=== PATIENT | female | born 1940 | race Caucasian/White ===

== ENCOUNTER → 2017-07-20 | Outpatient (CLI) | payer OTHER ==
[~2017-07-20] MED LIST: ALBU90OI; ALBU90OI INH; ALBU90OI61 INH; ASPI81CH PO; ASPI81EC PO; ATOR10 PO; Advair Hfa 230-12 GM INH; BENA20 PO; Benazepril HCl10 MG PO; CALCA500CH PO; CARB100CH PO; CARB100ER PO; CARB200 PO; CEPH250A PO; CITA20 PO; CLON1; CLON1 PO; CLON2 PO; CLOP75 PO; CONEST.625; CONESTTC PV; Carafate1 GM/10 ML PO; DOCU100 PO; DULO30 PO; ERGO400 PO; FLUSAL2505 PO; GABA300; GABA300 PO; HYDCHL25; HYDR1TAB94 PO; HYOS.125 PO; IMIP50; Ipratr-Albuterol3 ML INH; Isosorbide Dini30 MG PO; LEVSOD25 PO; LEVSOD75 PO; METO25; NAPR500; NAPR500 PO; NIFE30ER PO; NITR.4SL PO; NITR.4SL SL; NITR2TO30 TOP; OMEP20ER PO; PANT40 PO; PRAM.125 PO; RANI150; SENN187 PO; TRAM50; TRAM50 PO; TUMS X-STR300 MG PO; VICODIN 5-3001 EACH; [UNRECOGNIZED DRUG - OTHER]
[2017-07-20 11:06] LABS: BASOPHILS ABSOLUTE AUTO 0.05 K/mm3 (0.00-0.23); BASOPHILS PERCENT AUTO 1 % (0-2); EOSINOPHILS ABSOLUTE AUTO 0.09 K/mm3 (0.00-0.68); EOSINOPHILS PERCENT AUTO 1 % (0-6); Hematocrit 39.7 % (33.0-51.0); Hemoglobin 12.8 g/dL (11.5-16.0); IMMATURE GRAN ABSOLUTE AUTO 0.02 K/mm3 (0.00-0.10); IMMATURE GRAN PERCENT AUTO 0 % (0-1); LYMPHOCYTES ABSOLUTE AUTO 1.98 K/mm3 (0.84-5.20); LYMPHOCYTES PERCENT AUTO 27 % (21-46); MONOCYTES ABSOLUTE AUTO 0.65 K/mm3 (0.16-1.47); MONOCYTES PERCENT AUTO 9 % (4-13); Mean Corpuscular HGB 27.9 pg (26.0-34.0); Mean Corpuscular HGB Conc 32.2 g/dL (31.5-36.5); Mean Corpuscular Volume 87 fL (80-100); Mean Platelet Volume 9.8 fL (9.1-12.4); NEUTROPHILS ABSOLUTE AUTO 4.56 K/mm3 (1.96-9.15); NEUTROPHILS PERCENT AUTO 62 % (41-73); Platelet Count 306 K/mm3 (150-400); RDW Coefficient Variation 14.4 % (11.7-14.2); RDW Standard Deviation 45.4 fL (35.1-46.3); Red Blood Cell Count 4.58 M/mm3 (3.80-5.20); White Blood Cell Count 7.35 K/mm3 (4.00-11.30)
[2017-07-20 11:13] LABS: Albumin, Blood 3.8 g/dL (3.4-5.0); Albumin/Globulin Ratio 1.2 (0.8-1.8); Bilirubin, Total 0.4 mg/dL (0.1-1.0); Bun/Creatinine Ratio 10.1 (12.0-20.0); Calcium, Blood 8.9 mg/dL (8.5-10.1); Creatinine, Blood 1.29 mg/dL (0.40-1.00); Globulin, Blood 3.3 g/dL (2.2-4.0); Potassium, Blood 4.4 mmol/L (3.5-5.5); Total Protein, Blood 7.1 g/dL (6.4-8.2)
== END ==
LOC: LAB 10:58
PROVIDERS: Physician Assistant Medical
DX: R42 Dizziness and giddiness (principal)
CPT/HCPCS: 80053; 85025; 87086

== ENCOUNTER 2018-11-15 13:48 | Observation (INO) | payer OTHER ==
[~2018-11-15] VITALS: Ht 160 cm; Wt 64.8 kg
[~2018-11-15 13:48] MED LIST changes: -ALBU90OI61 INH; -ASPI81CH PO; -ATOR10 PO; -Advair Hfa 230-12 GM INH; -Benazepril HCl10 MG PO; -CEPH250A PO; -CLON1 PO; -GABA300 PO; -Ipratr-Albuterol3 ML INH; -LEVSOD75 PO; -METO25; -NIFE30ER PO; -PANT40 PO; -PRAM.125 PO
[2018-11-15 14:28] LABS: BASOPHILS ABSOLUTE AUTO 0.05 K/mm3 (0.00-0.23); BASOPHILS PERCENT AUTO 1 % (0-2); EOSINOPHILS PERCENT AUTO 5 % (0-6); Hematocrit 43.8 % (33.0-51.0); Hemoglobin 13.6 g/dL (11.5-16.0); IMMATURE GRAN ABSOLUTE AUTO 0.01 K/mm3 (0.00-0.10); IMMATURE GRAN PERCENT AUTO 0 % (0-1); LYMPHOCYTES ABSOLUTE AUTO 2.12 K/mm3 (0.84-5.20); LYMPHOCYTES PERCENT AUTO 33 % (21-46); MONOCYTES ABSOLUTE AUTO 0.52 K/mm3 (0.16-1.47); MONOCYTES PERCENT AUTO 8 % (4-13); Mean Corpuscular HGB 28.3 pg (26.0-34.0); Mean Corpuscular HGB Conc 31.1 g/dL (31.5-36.5); Mean Corpuscular Volume 91 fL (80-100); NEUTROPHILS ABSOLUTE AUTO 3.52 K/mm3 (1.96-9.15); NEUTROPHILS PERCENT AUTO 54 % (41-73); Platelet Count 305 K/mm3 (150-400); RDW Coefficient Variation 13.8 % (11.7-14.2); White Blood Cell Count 6.52 K/mm3 (4.00-11.30)
[2018-11-15 14:46] LABS: Alanine Aminotransfer (ALT/SGP 41 U/L (12-78); Albumin, Blood 3.8 g/dL (3.4-5.0); Alk Phos 95 U/L (50-136); Anion Gap 7 mmol/L (6-16); Aspartate Aminotrans (AST/SGOT 39 U/L (12-37); Bilirubin, Total 0.4 mg/dL (0.1-1.0); Blood Urea Nitrogen 11 mg/dL (8-24); Bun/Creatinine Ratio 12.9 (12.0-20.0); CO2, Blood 25 mmol/L (21-32); Calcium, Blood 8.7 mg/dL (8.5-10.1); Chloride, Blood 106 mmol/L (98-108); Creatinine, Blood 0.86 mg/dL (0.40-1.00); Globulin, Blood 3.8 g/dL (2.2-4.0); Glomerular Filtration Rate >60 (60-); Glucose, Blood 82 mg/dL (70-99); Potassium, Blood 4.5 mmol/L (3.5-5.5); Sodium, Blood 138 mmol/L (136-145); Total Protein, Blood 7.6 g/dL (6.4-8.2); Troponin I <0.015 ng/mL (0.000-0.040)
[2018-11-15] MEDS ORDERED: CLON1 PO (16:10)
[2018-11-15 16:13] LABS: Base Excess Venous 2.8 mmol/L; Bicarbonate Venous 26.5 mmol/L (24.0-30.0); PCO2 Venous 43.4 mmHg (38-42); PO2 Venous 89.8 mmHg (38-42); pH Blood Venous 7.41 (7.34-7.37)
[2018-11-15] MEDS ORDERED: Clobetasol Emol15 GM TOP (16:13)
[2018-11-15] MEDS ORDERED: METO25 PO (16:14)
[2018-11-15] MEDS ORDERED: Benazepril HCl10 MG PO (16:14)
[2018-11-15] MEDS ORDERED: GABA300 PO (16:14)
[2018-11-15] MEDS ORDERED: PANT40 PO (16:15)
[2018-11-15] MEDS ORDERED: CEPH250A PO (16:15)
[2018-11-15] MEDS ORDERED: PRAM.125 PO (16:15)
[2018-11-15] MEDS ORDERED: Aspirin EC81 MG PO (16:17)
[2018-11-15] MEDS ORDERED: NIFE30ER PO (16:18)
[2018-11-15 16:37] LABS: CHOL/HDL RATIO 2.6; Cholesterol 135 mg/dL (50-200); HDL Cholesterol 51 mg/dL (>39); LDL/HDL RATIO 1.1; Low Density Lipoprotein Chol 57 mg/dL (0-110); Triglycerides 134 mg/dL (30-160); Very Low Density Lipoprot Chol 26 mg/dL (6-32)
--- NOTE | 2018-11-15 19:33 | NUR ---
ARRIVAL PT ARRIVED TO UNIT APPROX. 1755 [facility]IA [facility] FROM ED. PT ABLE TO TRANSFER FROM [facility] TO BED ON OWN AND TOLERATED WELL. ORIENTED PT TO ROON, UNIT, AND POLICIES. ADMISSION PROCESS COMPLETED. ASSESSMENT COMPLETED. VITAL SIGNS STABLE. PT DENIES ANY CHEST PAIN AT THIS TIME. PT REPORTS THIS TO HAVE RESOLVED AFTER RECIEVING MEDICATIONS IN ED. PT RIGHT CALF SWOLLEN. RIGHT CALF LARGE THAN LEFT. PHYSICIAN AWARE OF THIS. PT GRANDSON AT BEDSIDE AT THIS TIME. BED IN LOW POSITION, CALL LIGHT IN REACH AND PT DENIES ANY NEEDS AT THIS TIME. WILL CONTINUE TO MONITOR UNTIL HANDOFF TO NIGHTSHIFT RN.
[2018-11-15 22:03] LABS: Source, Urine Clean Catch
[2018-11-15 22:05] LABS: Bilirubin, Urine Neg (Neg); Blood, Urine Neg (Neg); Glucose Qualitative, Urine Neg (Neg); Ketones, Urine Neg (Neg); Leukocyte Esterase, Urine Neg (Neg); Nitrite, Urine Neg (Neg); Protein, Urine Neg (Neg); Specific Gravity, Urine 1.005 (1.003-1.022); Urobilinogen, Urine NORM (Normal)
[2018-11-15 22:09] LABS: Appearance, Urine Clear (Clear); Color, Urine Pale Yellow (P-Yellow)
[2018-11-15 22:18] LABS: U Amphetamine Screen Not Detected; U Barbituate Screen Not Detected; U Benzodiazapine Screen Not Detected; U Buprenorphine Screen Not Detected; U Cannabinoids Screen Not Detected; U Cocaine Screen Not Detected; U Methadone Screen Not Detected; U Methamphetamine Screen Not Detected; U Opiates Screen DETECTED; U Oxycodone Screen Not Detected; U Phencyclidine Screen Not Detected; U Propoxyphene Screen Not Detected
[2018-11-15] MEDS ORDERED: ATOR10 PO (23:03)
[2018-11-15] MEDS ORDERED: LEVSOD75 PO (23:03)
[2018-11-15] MEDS ORDERED: Advair Hfa 230-12 GM INH (23:04)
[2018-11-15] MEDS ORDERED: ALBU90OI61 INH (23:05)
[2018-11-15] MEDS ORDERED: IPRATROPIUM 0.02% NEB (23:08)
--- NOTE | 2018-11-16 05:08 | NUR ---
NOC SHIFT SUMMARY PT IS PLEASANT AND COOPERATIVE WITH CARE. AAOX4. VSS. CAME TO ED FOR CHEST PAIN WHICH RESOLVED WITH TWO NITROGLYCERINS. SHE HAS DENIED ANY RECURENCE OF THAT PAIN. ON TELE SINUS KIKE RATE 54 WITH 1ST DEGREE BLOCK ON LAST TELE CHECK AT 0459. TROPONINS HAVE BEEN NEGATIVE. SHE HAS BEEN TREATED FOR NECK/SHOULDER/L AXIAL AREA PAIN ONCE THIS NIGHT. SHE STATES THESE ARE CHRONIC PAINS FOR WHICH SHE TYPICALLY TAKES NORCO AT HOME. SHE IS ON ROOM AIR AND ABLE TO AMBULATE WELL. SHE DOES COMPLAIN OF DIZZINESS AND FEELING OF THE ROOM SPINNING WHEN SHE TURNS HER HEAD. STATES THIS HAS BEEN GOING ON SINCE ABOUT TUESDAY THIS WEEK. PRESENTLY APPEARS TO BE SLEEPING AND IN NO ACUTE DISTRESS. WILL CONTINUE TO MONITOR.
--- NOTE | 2018-11-16 11:08 | NUR ---
PT COMPLAINS OF NAUSEA AND ANXIETY. REQUESTING NAUSEA MEDS AND CLONAZEPAM.
--- NOTE | 2018-11-16 14:29 | NUR ---
Echocardiogram completed.
[2018-11-16] MEDS ORDERED: Tylenol325 MG PO (16:12)
== END 2018-11-16 17:22 | disposition home or self-care (01) ==
LOC: ER 13:48 → PCU 13:49
PROVIDERS: Emergency Medicine; ADMIT Family Medicine
DX: R07.89 Other chest pain (principal); I25.10 Atherosclerotic heart disease of native coronary artery without angina pectoris; R01.1 Cardiac murmur, unspecified; R79.89 Other specified abnormal findings of blood chemistry; Q68.8 Other specified congenital musculoskeletal deformities; I25.2 Old myocardial infarction; I10 Essential (primary) hypertension; E78.5 Hyperlipidemia, unspecified; G89.29 Other chronic pain; J44.9 Chronic obstructive pulmonary disease, unspecified; E03.9 Hypothyroidism, unspecified; I08.1 Rheumatic disorders of both mitral and tricuspid valves; I70.0 Atherosclerosis of aorta; M19.90 Unspecified osteoarthritis, unspecified site; I27.20 Pulmonary hypertension, unspecified; Z87.891 Personal history of nicotine dependence; Z79.899 Other long term (current) drug therapy; Z79.82 Long term (current) use of aspirin; Z79.51 Long term (current) use of inhaled steroids; Z95.5 Presence of coronary angioplasty implant and graft
CPT/HCPCS: 36415; 71046; 80053; 80061; 81003; 82803; 84484; 85025; 93005; 93010; 93306; 93971; 96372; 96374; 96375; 99285-25; A9270; G0378; J1650; J2405; J3010

== ENCOUNTER 2019-06-28 18:34 | Emergency (ER) | payer OTHER ==
[~2019-06-28] VITALS: Ht 160 cm; Wt 61.2 kg
[~2019-06-28 18:34] MED LIST changes: +ALBU90OI61 INH; +ATOR10 PO; +Advair Hfa 230-12 GM INH; +Aspirin EC81 MG PO; +Benazepril HCl10 MG PO; +CEPH250A PO; +CLON1 PO; +Clobetasol Emol15 GM TOP; +GABA300 PO; +IPRATROPIUM 0.02% NEB; +LEVSOD75 PO; +METO25 PO; +NIFE30ER PO; +PANT40 PO; +PRAM.125 PO; +Tylenol325 MG PO
[2019-06-28 19:13] LABS: BASOPHILS ABSOLUTE AUTO 0.06 K/mm3 (0.00-0.23); BASOPHILS PERCENT AUTO 1 % (0-2); EOSINOPHILS PERCENT AUTO 3 % (0-6); Hematocrit 40.5 % (33.0-51.0); IMMATURE GRAN ABSOLUTE AUTO 0.02 K/mm3 (0.00-0.10); IMMATURE GRAN PERCENT AUTO 0 % (0-1); LYMPHOCYTES ABSOLUTE AUTO 2.57 K/mm3 (0.84-5.20); LYMPHOCYTES PERCENT AUTO 32 % (21-46); MONOCYTES ABSOLUTE AUTO 0.71 K/mm3 (0.16-1.47); MONOCYTES PERCENT AUTO 9 % (4-13); Mean Corpuscular HGB 28.8 pg (26.0-34.0); Mean Corpuscular HGB Conc 32.1 g/dL (31.5-36.5); Mean Corpuscular Volume 90 fL (80-100); Mean Platelet Volume 10.1 fL (9.1-12.4); NEUTROPHILS ABSOLUTE AUTO 4.43 K/mm3 (1.96-9.15); NEUTROPHILS PERCENT AUTO 55 % (41-73); Platelet Count 327 K/mm3 (150-400); RDW Coefficient Variation 13.3 % (11.7-14.2); RDW Standard Deviation 44.6 fL (35.1-46.3); Red Blood Cell Count 4.51 M/mm3 (3.80-5.20); White Blood Cell Count 7.99 K/mm3 (4.00-11.30)
[2019-06-28 19:35] LABS: Alanine Aminotransfer (ALT/SGP 16 U/L (12-78); Albumin, Blood 3.4 g/dL (3.4-5.0); Albumin/Globulin Ratio 0.9 (0.8-1.8); Alk Phos 76 U/L (50-136); Anion Gap 4 mmol/L (6-16); Aspartate Aminotrans (AST/SGOT 15 U/L (12-37); Bilirubin, Total 0.2 mg/dL (0.1-1.0); Blood Urea Nitrogen 15 mg/dL (8-24); Bun/Creatinine Ratio 21.9 (12.0-20.0); CO2, Blood 26 mmol/L (21-32); Calcium, Blood 8.4 mg/dL (8.5-10.1); Chloride, Blood 109 mmol/L (98-108); Creatinine, Blood 0.69 mg/dL (0.40-1.00); Globulin, Blood 3.6 g/dL (2.2-4.0); Glomerular Filtration Rate >60 (60-); Glucose, Blood 80 mg/dL (70-99); Potassium, Blood 3.5 mmol/L (3.5-5.5); Sodium, Blood 139 mmol/L (136-145)
[2019-06-28] MEDS ORDERED: Cymbalta30 MG (22:55)
[2019-06-28 23:10] LABS: Source, Urine Clean Catch
[2019-06-28 23:12] LABS: Bilirubin, Urine Neg (Neg); Blood, Urine Neg (Neg); Glucose Qualitative, Urine Neg (Neg); Ketones, Urine Neg (Neg); Leukocyte Esterase, Urine Neg (Neg); Nitrite, Urine Neg (Neg); Protein, Urine Neg (Neg); Specific Gravity, Urine 1.015 (1.003-1.022); Urobilinogen, Urine NORM (Normal)
[2019-06-28 23:15] LABS: Appearance, Urine Clear (Clear); Color, Urine Yellow (P-Yellow)
[2019-06-28] MEDS ORDERED: FLOMAX0.4 MG PO (23:31)
== END 2019-06-29 | disposition home or self-care (01) ==
LOC: ER 18:34
PROVIDERS: Physician Assistant
DX: R33.9 Retention of urine, unspecified (principal); I25.2 Old myocardial infarction; J44.9 Chronic obstructive pulmonary disease, unspecified; Z79.899 Other long term (current) drug therapy; Z87.891 Personal history of nicotine dependence
CPT/HCPCS: 36415; 80053; 81003; 85025; 99283; P9612

== ENCOUNTER → 2020-06-10 | Outpatient (CLI) | payer MEDICARE ==
[~2020-06-10] MED LIST changes: +ADALAT CC30 MG PO; +ADVAIR HFA 230-28 GM INH; +ALBU90OI6 INH; +ATOM10 PO; +ATORVASTATIN CA20 MG PO; +Aspir 8181 MG PO; +CLONAZEPAM1 MG PO; +Clonazepam1 M1 PO; +Cymbalta30 MG; +DULO60 PO; +Estrace Vagin42.5 GM VAG; +FLOMAX0.4 MG PO; +IPRAT-ALBUT 0.5-3 ML INH; +MIRALAX17 GM PO; +NEURONTIN300 MG PO; +Norco 5-325 Ta1 EACH PO; +SENNA LAXATIVE8.6 MG PO
[2020-06-10 15:51] LABS: Source, Urine Clean Catch
[2020-06-10 17:38] LABS: Appearance, Urine Cloudy (Clear); Blood, Urine 4+ (Neg); Color, Urine Amber (P-Yellow); Glucose Qualitative, Urine Neg (Neg); Ketones, Urine 4+ (Neg); Leukocyte Esterase, Urine 3+ (Neg); Nitrite, Urine Pos (Neg); Protein, Urine 4+ (Neg); Specific Gravity, Urine 1.015 (1.003-1.022); Urobilinogen, Urine 3+ (Normal)
[2020-06-10 17:46] LABS: Bacteria Many /hpf; Bilirubin, Urine 2+ (Neg); Squamous Epithelial Cells Few /hpf (Few); White Blood Cells, Urine TNTC /hpf (0-5)
== END | disposition home or self-care (01) ==
LOC: LAB SHORT 15:16 → LAB 15:16
PROVIDERS: Internal Medicine
DX: N39.0 Urinary tract infection, site not specified (principal)
CPT/HCPCS: 81001; 87077; 87086; 87186

== ENCOUNTER → 2020-07-21 | Outpatient (CLI) | payer MEDICARE ==
[2020-07-21 15:14] LABS: Appearance, Urine Cloudy (Clear); Bilirubin, Urine Neg (Neg); Blood, Urine Neg (Neg); Color, Urine Yellow (P-Yellow); Glucose Qualitative, Urine Neg (Neg); Ketones, Urine 2+ (Neg); Leukocyte Esterase, Urine 2+ (Neg); Nitrite, Urine Pos (Neg); Protein, Urine 2+ (Neg); Urobilinogen, Urine NORM (Normal)
[2020-07-21 15:45] LABS: Bacteria Many /hpf; Red Blood Cells, Urine 0-2 /hpf (0-2); Squamous Epithelial Cells Few /hpf (Few); Transitional Epithelial Cells Few /hpf (0-Rare); Triple Phosphate Crystals Few /hpf; White Blood Cells, Urine TNTC /hpf (0-5)
== END | disposition home or self-care (01) ==
LOC: LAB 11:50 → LAB SHORT 11:50 → LAB FUT 06-25 17:40
PROVIDERS: Internal Medicine
DX: N39.0 Urinary tract infection, site not specified (principal)
CPT/HCPCS: 81001; 87077; 87086; 87186

== ENCOUNTER 2020-07-27 19:58 | Emergency (ER) | payer MEDICARE ==
[~2020-07-27] VITALS: Ht 160 cm; Wt 56.2 kg
[~2020-07-27 19:58] MED LIST changes: -ALBU90OI6 INH; -ATORVASTATIN CA20 MG PO; -CLONAZEPAM1 MG PO; -NEURONTIN300 MG PO; -Norco 5-325 Ta1 EACH PO
[2020-07-27 20:24] LABS: BASOPHILS ABSOLUTE AUTO 0.07 K/mm3 (0.00-0.23); BASOPHILS PERCENT AUTO 1 % (0-2); EOSINOPHILS ABSOLUTE AUTO 0.11 K/mm3 (0.00-0.68); EOSINOPHILS PERCENT AUTO 1 % (0-6); Hematocrit 42.3 % (33.0-51.0); Hemoglobin 13.8 g/dL (11.5-16.0); IMMATURE GRAN ABSOLUTE AUTO 0.03 K/mm3 (0.00-0.10); IMMATURE GRAN PERCENT AUTO 0 % (0-1); LYMPHOCYTES ABSOLUTE AUTO 1.85 K/mm3 (0.84-5.20); LYMPHOCYTES PERCENT AUTO 20 % (21-46); MONOCYTES ABSOLUTE AUTO 0.57 K/mm3 (0.16-1.47); MONOCYTES PERCENT AUTO 6 % (4-13); Mean Corpuscular HGB Conc 32.6 g/dL (31.5-36.5); Mean Corpuscular Volume 86 fL (80-100); Mean Platelet Volume 10.3 fL (9.1-12.4); NEUTROPHILS PERCENT AUTO 72 % (41-73); Platelet Count 384 K/mm3 (150-400); RDW Coefficient Variation 14.6 % (11.7-14.2); RDW Standard Deviation 46.1 fL (35.1-46.3); Red Blood Cell Count 4.93 M/mm3 (3.80-5.20); White Blood Cell Count 9.23 K/mm3 (4.00-11.30)
[2020-07-27 20:41] LABS: Alanine Aminotransfer (ALT/SGP 16 U/L (12-78); Albumin, Blood 3.5 g/dL (3.4-5.0); Alk Phos 70 U/L (50-136); Anion Gap 6 mmol/L (6-16); Aspartate Aminotrans (AST/SGOT 16 U/L (12-37); Bilirubin, Total 0.4 mg/dL (0.1-1.0); Blood Urea Nitrogen 10 mg/dL (8-24); Bun/Creatinine Ratio 10.7 (12.0-20.0); CO2, Blood 24 mmol/L (21-32); Calcium, Blood 8.8 mg/dL (8.5-10.1); Chloride, Blood 108 mmol/L (98-108); Creatinine, Blood 0.93 mg/dL (0.40-1.00); Globulin, Blood 3.6 g/dL (2.2-4.0); Glomerular Filtration Rate >60 (60-); Glucose, Blood 130 mg/dL (70-99); Potassium, Blood 3.7 mmol/L (3.5-5.5); Sodium, Blood 138 mmol/L (136-145); Total Protein, Blood 7.1 g/dL (6.4-8.2); Troponin I <0.015 ng/mL (0.000-0.040)
== END 2020-07-27 21:51 | disposition home or self-care (01) ==
LOC: ER 19:58
PROVIDERS: Emergency Medicine
DX: R06.00 Dyspnea, unspecified (principal); I25.2 Old myocardial infarction; J44.9 Chronic obstructive pulmonary disease, unspecified; Z76.0 Encounter for issue of repeat prescription; Z79.899 Other long term (current) drug therapy; Z87.891 Personal history of nicotine dependence
CPT/HCPCS: 36415; 71045; 80053; 83880; 84484; 85025; 93005; 93010; 96374; 99285-25; A9270; J2405

== ENCOUNTER 2020-09-05 13:27 | Observation (INO) | payer MEDICARE ==
[~2020-09-05] VITALS: Ht 160 cm; Wt 54.6 kg
[2020-09-05] MEDS ORDERED: PANT40 PO (14:05)
[2020-09-05] MEDS ORDERED: ALBU90OI6 INH (14:06)
[2020-09-05] MEDS ORDERED: CEPH250A PO (14:07)
[2020-09-05] MEDS ORDERED: CLON1 PO (14:11)
[2020-09-05 14:13] LABS: BASOPHILS ABSOLUTE AUTO 0.05 K/mm3 (0.00-0.23); BASOPHILS PERCENT AUTO 1 % (0-2); EOSINOPHILS ABSOLUTE AUTO 0.02 K/mm3 (0.00-0.68); EOSINOPHILS PERCENT AUTO 0 % (0-6); Hematocrit 46.5 % (33.0-51.0); Hemoglobin 14.9 g/dL (11.5-16.0); IMMATURE GRAN ABSOLUTE AUTO 0.02 K/mm3 (0.00-0.10); IMMATURE GRAN PERCENT AUTO 0 % (0-1); LYMPHOCYTES ABSOLUTE AUTO 1.57 K/mm3 (0.84-5.20); LYMPHOCYTES PERCENT AUTO 15 % (21-46); MONOCYTES ABSOLUTE AUTO 0.69 K/mm3 (0.16-1.47); MONOCYTES PERCENT AUTO 7 % (4-13); Mean Corpuscular HGB 27.4 pg (26.0-34.0); Mean Corpuscular Volume 86 fL (80-100); Mean Platelet Volume 10.4 fL (9.1-12.4); NEUTROPHILS ABSOLUTE AUTO 7.82 K/mm3 (1.96-9.15); NEUTROPHILS PERCENT AUTO 77 % (41-73); Platelet Count 338 K/mm3 (150-400); RDW Coefficient Variation 13.9 % (11.7-14.2); RDW Standard Deviation 43.2 fL (35.1-46.3); Red Blood Cell Count 5.43 M/mm3 (3.80-5.20); White Blood Cell Count 10.17 K/mm3 (4.00-11.30)
[2020-09-05 14:34] LABS: Alanine Aminotransfer (ALT/SGP 19 U/L (12-78); Albumin, Blood 4.2 g/dL (3.4-5.0); Alk Phos 79 U/L (50-136); Anion Gap 12 mmol/L (6-16); Aspartate Aminotrans (AST/SGOT 26 U/L (12-37); Bilirubin, Total 0.7 mg/dL (0.1-1.0); Blood Urea Nitrogen 11 mg/dL (8-24); Bun/Creatinine Ratio 12.3 (12.0-20.0); CO2, Blood 22 mmol/L (21-32); Calcium, Blood 9.3 mg/dL (8.5-10.1); Chloride, Blood 105 mmol/L (98-108); Creatinine, Blood 0.89 mg/dL (0.40-1.00); Glomerular Filtration Rate >60 (60-); Glucose, Blood 115 mg/dL (70-99); Potassium, Blood 3.5 mmol/L (3.5-5.5); Sodium, Blood 139 mmol/L (136-145); Total Protein, Blood 8.2 g/dL (6.4-8.2)
[2020-09-05 14:39] LABS: Source, Urine Catheter
[2020-09-05 14:44] LABS: Appearance, Urine Hazy (Clear); Bilirubin, Urine Neg (Neg); Blood, Urine 2+ (Neg); Color, Urine Yellow (P-Yellow); Glucose Qualitative, Urine Neg (Neg); Ketones, Urine 4+ (Neg); Leukocyte Esterase, Urine 3+ (Neg); Nitrite, Urine Pos (Neg); Protein, Urine 3+ (Neg); Specific Gravity, Urine 1.015 (1.003-1.022); Urobilinogen, Urine NORM (Normal)
[2020-09-05 14:56] LABS: White Blood Cells, Urine 50-100 /hpf (0-5)
[2020-09-05 14:58] LABS: Bacteria Many /hpf; Squamous Epithelial Cells Few /hpf (Few)
[2020-09-05] MEDS ORDERED: ATORVASTATIN CA20 MG PO (16:28)
[2020-09-05] MEDS ORDERED: NEURONTIN300 MG PO (16:29)
[2020-09-05] MEDS ORDERED: CLONAZEPAM1 MG PO (16:29)
--- NOTE | 2020-09-05 17:42 | NUR ---
PT ARRIVED TO FLOOR AT 1736 AOX1 AND HALLUCINATING ABOUT SPIDERS CRAWLING ON HER. PT IS VERY CONFUSED, BUT SEEMS TO BE STAYING IN BED. PT HAD BP 196/111 AND WAS TREATED PER EMAR. WILL RECHECK BP TO SEE IF EFFECTIVE. BED ALARM IN PLACE WILL CONTINUE TO MONITOR.
[2020-09-05 19:00] LABS: Source, Urine Clean Catch
[2020-09-05 19:06] LABS: Bilirubin, Urine Neg (Neg); Blood, Urine 3+ (Neg); Color, Urine Yellow (P-Yellow); Glucose Qualitative, Urine Neg (Neg); Ketones, Urine 4+ (Neg); Leukocyte Esterase, Urine 1+ (Neg); Nitrite, Urine Pos (Neg); Protein, Urine 2+ (Neg); Urobilinogen, Urine NORM (Normal)
--- NOTE | 2020-09-05 19:07 | NUR ---
PT BEGAN TRYING TO GET OUT OF BED AND IS VERY UNSTABLE. NOTIFIED DR CORTEZ AND POSE VEST WAS ORDERED. PT ALSO CONTINUES TO HAVE HIGH BP OF 184/113 AND WAS TREATED PER EMAR WITH AN ADDITIONAL 10MG OF HYDRALAZINE WAS GIVEN WELL. CYTOMETRY TECHNOLOGIST NURSE WAS NOTFIED OF CONTINUED NEED TO MONITOR BP.
[2020-09-05 19:12] LABS: Appearance, Urine Hazy (Clear)
[2020-09-05 19:14] LABS: Bacteria Many /hpf; Red Blood Cells, Urine Not Seen /hpf (0-2); Squamous Epithelial Cells Few /hpf (Few); Transitional Epithelial Cells Rare /hpf (0-Rare)
[2020-09-05] MEDS ORDERED: Norco 5-325 Ta1 EACH PO (22:39)
[2020-09-05] MEDS ORDERED: METO25 PO (22:40)
--- NOTE | 2020-09-06 06:01 | NUR ---
PT IS CONFUSED, HALLUCINATING AND TALKING TO HERSELF OFTEN. IMPULSIVE, ATTEMPTS TO JUMP OUT OF BED WITH UNSTEADY GAIT, WEARING NISHANT VEST FOR SAFETY. PT WAS NO VOID THIS SHIFT, PER MD ORDER STRAIGHT CATH IF OVER 400MLS IN BLADDER. PT WAS STRAIGHT CATHED AFTER BLADDERSCAN OF 598, ONLY 350 MLS OF URINE RECIEVED DURING STRAIGHT CATH. IV HYDRALAZINE GIVEN FOR BP OVER 160 SYSTOLIC THIS AM.
--- NOTE | 2020-09-06 10:39 | NUR ---
PADMINI CLEAN CATCH UA PER V.O. FROM DR. CORTEZ D/C CLEAN CATCH UA.
--- NOTE | 2020-09-06 17:29 | NUR ---
Shift Summary AO to self. Pleasant and cooperative. Attempted to take patient to bathroom multiple times without results of bm or void. Bladder scan showed 364 cc, straight cath not indicated for volume. No visual/auditory halluciations, denies pain, nausea, vomiting. Minimal word responses and patient is extremely slow to respond. 2p max c gait d/t spastic gait, tremors, difficulty redirecting, and inability to follow simple commands. Bed alarm and camera on, devyn restraints off. Verified patient is in view of camera. TM.
--- NOTE | 2020-09-06 22:16 | NUR ---
ASSUMED CARE RECEIVED REPORT FROM IZABEL PETER. PT IN BED CALM AND COMFORTABLE WATCHING TV. WILL CONTINUE TO MONITOR.
--- NOTE | 2020-09-07 00:48 | NUR ---
ATTEMPTED TO VOID IN THE BATHROOM BUT IT WAS UNSUCCESFUL. BLADDER SCANNED PATIENT -RESULT: 414 ML. STRAIGHT CATH PER ORDER IF MORE THAN 400 ML. STRAIGHT CATH VOID OF 420 ML. PT TOLERATED IT WELL.
--- NOTE | 2020-09-07 04:44 | NUR ---
SHIFT SUMMARY PT ALERT TO SELF. PT EXPERIENCED SOME HALLUCINATION THIS MORNING X1, SHE WAS TALKING ABOUT SNAKES. BUT SHE REMAINED CALM, PLEASANT AND COMFORTABLE IN BED. PT ATTEMPTED TO VOID IN BATHROOM BUT IT WAS UNSUCCESFUL. (sEE PREVIOUS NOTES). SCANNED AND STRAIGHT CATH TOLERATED IT WELL. SHE IS 2 PERSON ASSIST. SHE RESPONDS TO QUESTION AND FOLLOW COMMANDS. PT DENIES PAIN, N/V. BED ALARM AND CAM ON. CALL LIGHT WITHIN REACH. WILL PROVIDE REPORT TO ONCOMING NURSE.
--- NOTE | 2020-09-07 17:28 | NUR ---
PT IS ALERT ORIENTED TO SELF ONLY, THE PT APPEARS TO BE BREATHING EASILY ON RA, THE PT IS SOB WITH ACTIVITY, TODAY THE PT REPORTED SEEING SNAKES IN HER BED AND OTHER HALUCINATIONS, THE PT WAS REORIENTED AND REASSURED THAT THERE WAS NOT ANY SNAKES IN HER BED, THE PT WAS ABLE TO AMBULATE TO THE BATHROOM TODAY WITH ASSIST, THE PT VOIDED AND HAD A BM, POST VOID BLADDER SCAN WAS DONE AND ONLY 62CC RESIDUAL WAS FOUND, PT APPEARED TO BE MORE ANXIOUS THIS EVENING COMPARED TO THIS AM, CALL LIGHT IN REACH, BED ALARM ON, WILL CONTINUE TO MONITOR AND ASSESS FOR CHANGES
--- NOTE | 2020-09-08 04:38 | NUR ---
SUMMARY: PT ORIENTED TO SELF AND "HOSPITAL" BUT CONFUSED OTHERWISE W/REMINDERS PROVIDED PRN. SHE CONT'S TO HALLUCINATE, APPEARING SLIGHTLY PARANOID AND ANXIOUS AT TIMES. COMFORT AND REASSURANCE PROVIDED PRN. SHE SPOKE OF "DISAPPOINTING OUR FATHER" AND WAS SEEING "GIGGLING BOYS UNDER HER BED". BED ALARM ON FOR FALL RISK, AMS AND IMPULSIVITY. PO INTAKE IS ENCOURAGED BUT REMAINS VERY POOR. SHE HASN'T VOIDED YET THIS SHIFT BUT STAFF PLAN TO ATTEMPT TOILETING HER AND BLADDER SCAN W/ST.CATH PRN IF INDICATED FOR PVR>400. NEW IV PLACED TO L.WRIST AFTER PT PULLED PREVIOUS OUT. NO ACUTE CHANGES, VSS/AFEBRILE AND BP IMPROVED TONIGHT. PLACEMENT NEEDED UPON D/C. WCTM AND REPORT TO DAY RN.
[2020-09-08 04:52] LABS: Hematocrit 41.6 % (33.0-51.0); Hemoglobin 13.4 g/dL (11.5-16.0); Mean Corpuscular HGB 27.6 pg (26.0-34.0); Mean Corpuscular HGB Conc 32.2 g/dL (31.5-36.5); Mean Corpuscular Volume 86 fL (80-100); Mean Platelet Volume 10.5 fL (9.1-12.4); Platelet Count 310 K/mm3 (150-400); RDW Coefficient Variation 14.3 % (11.7-14.2); RDW Standard Deviation 45.1 fL (35.1-46.3); Red Blood Cell Count 4.85 M/mm3 (3.80-5.20); White Blood Cell Count 10.93 K/mm3 (4.00-11.30)
[2020-09-08 05:07] LABS: Albumin, Blood 3.6 g/dL (3.4-5.0); Anion Gap 12 mmol/L (6-16); Blood Urea Nitrogen 29 mg/dL (8-24); Bun/Creatinine Ratio 32.5 (12.0-20.0); CO2, Blood 22 mmol/L (21-32); Calcium, Blood 8.9 mg/dL (8.5-10.1); Chloride, Blood 108 mmol/L (98-108); Creatinine, Blood 0.89 mg/dL (0.40-1.00); Glomerular Filtration Rate >60 (60-); Glucose, Blood 104 mg/dL (70-99); Phosphorus, Blood 3.3 mg/dL (2.5-4.9); Potassium, Blood 3.1 mmol/L (3.5-5.5); Sodium, Blood 142 mmol/L (136-145)
--- NOTE | 2020-09-08 07:24 | NUR ---
DR LY NOTIFIED POTASSIUM 3.1. TO CHECK CHART.
--- NOTE | 2020-09-08 14:13 | NUR ---
IN AND OUT CATH FOR 650 ML OF DARK TEA COLORED URINE. TOLERATED WELL.
--- NOTE | 2020-09-08 17:44 | NUR ---
ALERT. CONFUSED AT TIMES. 2 PERSON ASSIST. UNABLE TO URINATE, SO IN AND OUT CATH X ONCE WITH PATIENT TOLERATING WELL. WAITING FOR PLACEMENT. AT TIMES NONSENSICAL SPEECH. NO ACUTE CHANGES. WCTM
--- NOTE | 2020-09-09 05:43 | NUR ---
SHIFT SUMMARY: PATINT IS ALERT AND ORIENTED TO SELF ONLY. VISUAL HALLUCINATIONS. THINKS HER IS IN THE ROOM WITH HER. VSS, NO REPROTS OF PAIN OR DISCOMFORT. UP TO THE BATHROOM WITH ASSIST OF 1 AND FWW, GAIT BELT CAUSES ANXIETY FOR PATIENT, NOT USED FOR TRANFER. POOR PO INTAKE, RETAINING URINE. BLADDER SCANED FOR 336 ML, PATIENT WAS BLE TO VOID WITHOUT INTERVENTION, 400 ML OF JAN URINE. BED ALARM IS ON FOR SAFETY.
--- NOTE | 2020-09-09 18:16 | NUR ---
ALERT TO SELF. HALLUCINATING. WILL TALK ABOUT PEOPLE ON THE TV AND TV IS OFF. COOPERATIVE. POOR APPETITE. UNLABORED RESPIRATIONS. AWAITING PLACEMENT. NO ACUTE CHANGES. WCTM
--- NOTE | 2020-09-10 06:16 | NUR ---
SHIFT SUMMARY: NO ACUTE CHANGES. PATIENT IS ORIENTED TO SELF ONLY. UNABLE TO VOID ON OWN. BLADDER SCANNED FOR 426ML. STRAIGTHE CATHED FOR 600ML
--- NOTE | 2020-09-10 16:46 | NUR ---
REQUEST PAIN MEDS FROM .PATIENT STS TYLENOL DOES NOT WORK, BUT DOES TAKE NORCO WHICH IS ON HER MED REC. GIVE IBU 400 MG AND TYLENOL 650 Q 6 HR PRN.
--- NOTE | 2020-09-10 18:32 | NUR ---
ALERT TO SELF. COOPERATIVE. UNLABORED RESPIRATIONS. 2 VOIDS THIS SHIFT. POSSIBLE D'C TOMORROW PER HOSPITALIST. IV PATENT. WCTM
--- NOTE | 2020-09-11 04:28 | NUR ---
SHIFT SUMMARY: 80 Y/O FEMALE RESTED COMFORTABLY ALL SHIFT; DENIES PAIN OR NAUSEA; BED ALARM APPLIED, BED LOW POSITION WITH CALL LIGHT AT SIDE.
[2020-09-11 06:02] LABS: Hematocrit 41.9 % (33.0-51.0); Hemoglobin 13.5 g/dL (11.5-16.0); Mean Corpuscular HGB 28.1 pg (26.0-34.0); Mean Corpuscular HGB Conc 32.2 g/dL (31.5-36.5); Mean Corpuscular Volume 87 fL (80-100); Mean Platelet Volume 11.1 fL (9.1-12.4); Platelet Count 315 K/mm3 (150-400); White Blood Cell Count 7.98 K/mm3 (4.00-11.30)
[2020-09-11 06:26] LABS: Albumin, Blood 3.3 g/dL (3.4-5.0); Anion Gap 7 mmol/L (6-16); Blood Urea Nitrogen 29 mg/dL (8-24); Bun/Creatinine Ratio 29.2 (12.0-20.0); CO2, Blood 26 mmol/L (21-32); Calcium, Blood 8.5 mg/dL (8.5-10.1); Chloride, Blood 109 mmol/L (98-108); Creatinine, Blood 0.99 mg/dL (0.40-1.00); Glomerular Filtration Rate 57 (60-); Glucose, Blood 92 mg/dL (70-99); Phosphorus, Blood 3.9 mg/dL (2.5-4.9); Potassium, Blood 3.4 mmol/L (3.5-5.5); Sodium, Blood 142 mmol/L (136-145)
--- NOTE | 2020-09-11 17:28 | NUR ---
SUMMARY PT SITTING UP IN THE CHAIR AT THE BEDSIDE EATING DINNER, PT HAS BEEN PLEASANTLY CONFUSED AND PLEASANTLY COOPERATIVE T/O THE DAY, PT HAS WORKED WITH PT/OT, CARE MANAGEMENT IS WORKING ON A SAFE DISCHARGE PLAN, PT DENIES ANY PAIN OR SOB, VSS, WILL CONT TO MONITOR
--- NOTE | 2020-09-11 22:20 | NUR ---
BLADDER SCAN 7 ML. SMILED. NO C/O VOICED. CALL LIGHT IN REACH
[2020-09-12 05:38] LABS: Albumin, Blood 3.3 g/dL (3.4-5.0); Anion Gap 5 mmol/L (6-16); Blood Urea Nitrogen 31 mg/dL (8-24); Bun/Creatinine Ratio 31.7 (12.0-20.0); CO2, Blood 24 mmol/L (21-32); Calcium, Blood 8.7 mg/dL (8.5-10.1); Chloride, Blood 111 mmol/L (98-108); Creatinine, Blood 0.98 mg/dL (0.40-1.00); Glomerular Filtration Rate 58 (60-); Glucose, Blood 99 mg/dL (70-99); Phosphorus, Blood 2.6 mg/dL (2.5-4.9); Potassium, Blood 4.2 mmol/L (3.5-5.5); Sodium, Blood 140 mmol/L (136-145)
--- NOTE | 2020-09-12 07:35 | NUR ---
NIGHTSHIFT SUMMARY Marla slept intermittantly most of the night, waking up each time we would enter the room to check on her. Alert and oriented only to self, she was pleasant and cooperative with assessment and HS care. At change of shift, Marla flew into a rage when myself and the oncoming RN entered the room to include her in shift report. She tried to push her bedside table at the o oncoming RN because she thought she was laughing and talking to her family outside her door. Situation was quickly de escalated, and patient again calmed right down to her baseline.
[2020-09-12] MEDS ORDERED: NIFE30ER PO (12:23)
--- NOTE | 2020-09-12 14:45 | NUR ---
SUMMAR/DISCHARGE PT BEING DISCHARGED TO HOME, SPOKE WITH DAUGHTER ON THE PHONE, SHE WILL BE HERE TO GET THE PT IN ABOUT 30 MINUTES, WILL GO OVER DISCHARGE ORDERS WITH THE DAUGHTER THE PT HAS DEMENTIA, WILL CONT TO MONITOR
--- NOTE | 2020-09-12 16:13 | NUR ---
SUMMARY/DISCHARGE PT DISCHARGED TO HOME WITH HER GRAND DAUGHTER, SON WILL STAYING WITH THE PT PER THE GRAND DAUGHTER, GD VERBALIZED UNDERSTANDING OF DISCHARGE INSTRUCTIONS REGARDING MEDS AND FOLLOW UP, PT TAKEN OUT SAFELY VIA WHEELCHAIR
== END 2020-09-12 15:29 | disposition home or self-care (01) ==
LOC: ER 13:27 → MEDS 13:28 → ENPENDDIS 09-12 12:13 → MEDS 09-12 15:29
PROVIDERS: Emergency Medicine; Internal Medicine; ADMIT Internal Medicine
DX: N39.0 Urinary tract infection, site not specified (principal); G92 Toxic encephalopathy; B96.4 Proteus (mirabilis) (morganii) as the cause of diseases classified elsewhere; B95.4 Other streptococcus as the cause of diseases classified elsewhere; G30.9 Alzheimer's disease, unspecified; F02.80 Dementia in other diseases classified elsewhere, unspecified severity, without behavioral disturbance, psychotic disturbance, mood disturbance, and anxiety; E87.6 Hypokalemia; I25.10 Atherosclerotic heart disease of native coronary artery without angina pectoris; I25.2 Old myocardial infarction; I10 Essential (primary) hypertension; J44.9 Chronic obstructive pulmonary disease, unspecified; E03.9 Hypothyroidism, unspecified; R33.9 Retention of urine, unspecified; Z66 Do not resuscitate; Z87.891 Personal history of nicotine dependence; Z95.5 Presence of coronary angioplasty implant and graft
CPT/HCPCS: 36415; 70450; 71045; 80053; 80069; 81001; 84443; 85025; 85027; 87077; 87086; 87186; 93005; 93010; 94760; 96365-59; 96366; 96372; 96376; 97110; 97116; 97129-GO-CO; 97130-GO-CO; 97162; 97166; 97530; 97535; 97535-CO; 99285-25; A9270; G0378; J0360; J0696; J1650; J2405; J7050; P9612